=== PATIENT | female | born 1990 | race African-American/Black ===

== ENCOUNTER 2020-01-24 17:39 | Emergency (ER) | payer OTHER ==
[2020-01-24 17:49] VITALS: BP 127/66; PULSE 86; TEMP 97; BMI 23.5
[2020-01-24] MEDS ORDERED: KETOROLAC TROMETHAMINE 30 MG/1 ML VIAL IM ONE (18:10)
--- NOTE | 2020-01-24 18:15 | PDOC ---
History of Present Illness - General Chief Complaint: Pain Stated Complaint: BACK PAIN Time Seen by Provider: 01/24/20 18:00 History Source: Patient Exam Limitations: No Limitations - History of Present Illness Initial Comments: 01/24/20 18:17 CHIEF COMPLAINT: Lower back pain HISTORY OF PRESENT ILLNESS: 29-year-old woman who denies medical history presents emergency department with sudden onset lower back pain which occurred while lifting a patient. 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 Patient denies any neurosensory deficits, radiation of pain, incontinence of bladder or bowel, urinary retention, saddle anesthesia, foot drop, history of IV drug use or history of cancer. REVIEW OF SYSTEMS: GENERAL: Afebrile, denies any weakness RESPIRATORY: No cough, wheezing, or hemoptysis. CARDIAC: No chest pain or shortness of breath MUSCULOSKELETAL: Pain to generalized lower back. No point tenderness. SKIN : No erythema, no bruising, no deformity. GI/: Denies any abdominal pain, no urinary difficulty, incontinence or urinary retention. RECTAL: Denies any difficulty this A.m. NEUROLOGICAL: Denies any numbness or tingling. No neurosensory deficits. PHYSICAL EXAM: GENERAL: The patient is awake, alert, and fully oriented, in no acute distress. RESPIRATORY: Lungs clear bilaterally, no rhonchi wheezes or crackles CARDIAC: S1-S2 audible, no murmur rub or gallop MUSCULOSKELETAL: Pain to generalized lower back, nonradiating, no tingling or sensory deficit. Less than 2 second cap refill, +2 pedal pulses. No spinal point tenderness. Normal reflexive and no deficits to sensation or strength. GI/: Abdomen soft, nontender, nondistended. No rebound tenderness. No masses palpable. RECTAL: Deferred patient with no neurological findings SKIN: Warm, Dry, normal turgor, no erythema, no edema no bruising. Past History - Medical History Allergies/Adverse Reactions: Allergies Allergy/AdvReac Type Severity Reaction Status Date / Time No Known Allergies Allergy Verified 01/24/20 17:49 Home Medications: Ambulatory Orders Diazepam [Valium] 5 mg PO ONCE #1 tablet MDD 1 01/24/20 Methocarbamol [Robaxin -] 1,000 mg PO TID PRN #42 tablet 01/24/20 COPD: No - Reproductive History Is Patient Now?: No - Psycho-Social/Smoking History Smoking History: Never smoked - Substance Abuse Hx (Audit-C & DAST Scrn) How often the patient has a drink containing alcohol: Never Score: In Men: 4 or > Positive; In Women: 3 or > Positive: 0 Screen Result (Pos requires Nsg. Audit-10AR): Negative *Physical Exam - Vital Signs Last Vital Signs Temp Pulse Resp BP Pulse Ox 97 F L 86 18 127/66 99 01/24/20 17:46 01/24/20 17:46 01/24/20 17:46 01/24/20 17:46 01/24/20 17:46 Medical Decision Making - Medical Decision Making 01/24/20 18:17 A/P: 29-year-old woman with lower back pain status post heavy lifting Physical exam is unremarkable Able to perform straight leg raises without difficulty Gait is steady Toradol 30 mg IM now Discharge home with prescription for as needed Robaxin and Valium for 1 dose. I discussed the physical exam findings, ancillary test results and final diagnoses with the patient. I answered all of the patient's questions. The patient was satisfied with the care received and felt comfortable with the discharge plan and treatment plan. The patient will call their primary care physician within 24 hours to arrange follow-up and will return to the Emergency Department with any new, persistent or worsening symptoms. Portions of this note have been documented using voice recognition software. As a result, errors may occur in the belt operator process. Effort has been made to correct all grammatical and belt operator error, but some may have been missed which may produce sporadic inaccurate belt operator or nonsensical phrases. Discharge - Discharge Information Problems reviewed: Yes Clinical Impression/Diagnosis: Back pain Qualifiers: Back pain location: low back pain Chronicity: acute Back pain laterality: midline Sciatica presence: without sciatica Qualified Code(s): M54.5 - Low back pain Condition: Stable Disposition: HOME - Admission No - Additional Discharge Information Prescriptions: Methocarbamol [Robaxin -] 1,000 mg PO TID PRN #42 tablet PRN Reason: Back Pain Diazepam [Valium] 5 mg PO ONCE #1 tablet MDD 1 - Follow up/Referral Referrals: Watson Muhammad [Primary Care Provider] - - Patient Discharge Instructions Additional Instructions: Rest, no heavy lifting or exercise until pain is resolved Hot soaks to neck and low back as often as possible/hot showers or Jacuzzis No massage or therapy until spasm is gone Continue naproxen 2-220 mg tablets every 12 hours for the next 3 days then as needed for pain and swelling Robaxin 1500mg every 8 hours as needed for spasm If not significant improvement within 24 hours with medication and rest regime, followup with private physician for change in medications and /or therapy. - Post Discharge Activity Work/Back to School Note: Back to Work
[2020-01-24] MEDS ORDERED: KETOROLAC TROMETHAMINE 30 MG/1 ML VIAL ONE (18:17)
== END 2020-01-24 18:56 | disposition home or self-care (01) ==
LOC: JERFT 17:39
PROC: 3E0233Z Introduction of Anti-inflammatory into Muscle, Percutaneous Approach (ICD-10-PCS; principal; 2020-01-24)
DX: M54.5 Low back pain (principal)
CPT/HCPCS: 99284-25